=== PATIENT | female | born 1950 | race Caucasian/White ===

== ENCOUNTER 2019-08-15 11:04 | Emergency (ER) | payer MEDICARE, SELFPAY ==
[2019-08-15 11:06] VITALS: BP 145/96; PULSE 107; RESP 18; O2SAT 100; BMI 23.4
--- NOTE | 2019-08-15 11:19 | [facility].EDABDPAI ---
ED Disposition Clinical Impression: Abdominal pain Disposition: Home, Self-Care Condition on Discharge: Good Instructions: DI for Acute Abdomen Prescriptions: Nabumetone 750 mg PO BID 10 Days #20 tab Transmission Status: Pending to [facility] Tizanidine HCl [Zanaflex 4mg tablet] 4 mg PO TID 10 Days #30 tab Transmission Status: Pending to [facility] Referrals: Provider,Referral, MD [Primary Care Provider] - - Critical Care Critical Care Time: No Attestation: On , the high probability of a clinically significant, sudden or life threatening deterioration of the following system(s) required my full and direct attention, intervention and personal management. The time I documented below is in addition to time spent performing reported procedures but includes the following listed in this critical care notation. Medical Decision Making - Medical Records Medical records reviewed: Yes: I reviewed the patient's medical records. - Anatoliy Inquiry Pt receiving controlled substance: No Vital Signs: 08/15/19 11:06 08/15/19 13:12 Pulse Rate [Radial] 107 H 92 H Respiratory Rate 18 20 Blood Pressure [Right Arm] 145/96 H 147/83 H Blood Pressure Mean [Right Arm] 112 104 Blood Pressure Source [Right Arm] Automatic Cuff Automatic Cuff Blood Pressure Position [Right Arm] Sitting Sitting 02 Sat by Pulse Oximetry 100 98 Oxygen Delivery Method Room Air - Lab Data Lab results reviewed: Yes: I reviewed the patient's lab results. Lab Results 08/15/19 11:20: Urine Color Yellow, Urine Appearance Clear, Urine pH 5.5, Ur Specific [place] 1.015, Urine Protein Negative, Urine Glucose (UA) Negative, Urine Ketones Negative, Urine Blood Negative, Urine Nitrate Negative, Urine Bilirubin Negative, Urine Urobilinogen 0.2, Ur Leukocyte Esterase Negative, Urine RBC None, Urine WBC None, Ur Squamous Epith Cells 5-10, Amorphous Sediment Trace, Urine Bacteria None - CT Data CT Scan: Abdomen, Pelvis Time Received: 13:23 Preliminary Findings: Normal/NAD Abdominal Pain HPI - General Chief Complaint: Abdominal Pain Stated Complaint: lower stomach pain, top leg pain Time Seen by Provider: 08/15/19 11:19 Mode of Arrival: Ambulatory Source of Information: Patient Limitations: No Limitations Description of Symptoms (Recalled from ER Triage Doc. by RN): Lower abdomen pain. Lots of pressure - History of Present Illness HPI narrative: A pleasant 69-year-old female presents to the ED complaining of some suprapubic and lower abdominal pain that just started today. She states she does not not have any other symptoms except for the pain, radiates to the anterior part of her of her thighs. She states the pain feels more like a pressure sensation. She also rates that pain 3 out of 10. She states exacerbating factors include increasing intra-abdominal pressure and exacerbating factors include relieving herself via micturition. Otherwise no other symptoms. Patient is also very active she still works at a [employer] making [employer]. - Related Data Previous Rx's Medication Instructions Recorded Nabumetone 750 mg PO BID 10 Days #20 tab 08/15/19 Tizanidine HCl [Zanaflex 4mg 4 mg PO TID 10 Days #30 tab 08/15/19 tablet] Allergies Allergy/AdvReac Type Severity Reaction Status Date / Time No Known Allergies Allergy Verified 08/15/19 11:17 [facility] History - Hepatitis A Screen Drug use history?: No High risk sexual behaviors?: No History of sexually transmitted infection?: No Currently employed?: No Childcare worker?: No Do you have indoor plumbing?: Yes Do you have electricity?: Yes Attestation statement:: This patient has been screened for Hepatitis A risk factors. I have reviewed the patient's past medical history: Yes - Social History Educational Level: Completed High School Alcohol Intake: never Occupational Status: other Housing: house ROS Obtained: Yes All systems reviewed & no additional complaints
[2019-08-15 11:41] LABS: Microscopic, Urine URINE MICROSCOPIC (MICROSCOPIC)
[2019-08-15 11:43] LABS: Appearance,Urine CLEAR (Clear); Bilirubin,Urine Negative (Negative); Blood, Urine Negative (Negative); Color,Urine YELLOW (Yellow); Glucose,Urine (UA) Negative (Negative); Ketones,Urine Negative (Negative); Leukocyte Esterase,Urine Negative (Negative); Nitrate,Urine Negative (Negative); PH,Urine 5.5 (5.0-8.5); Protein,Urine Negative (Negative); Specific Gravity, Urine 1.015 (1.005-1.030); Urobilinogen,Urine 0.2 EU/dl (0.2)
[2019-08-15 11:54] LABS: Amorphous Sediment,Urine Trace /lpf
--- NOTE | 2019-08-15 12:07 | CT_ITS ---
PROCEDURE: CT ABDOMEN PELVIS WO CON CLINICAL INDICATION: pain Lower abdominal pain COMPARISON: No exams were available for comparison TECHNIQUE: Axial images obtained with sagittal and coronal reformats. All CT scans at the facility use one or more dose reduction, viz: automated exposure control, ma/kV adjustment per patient size (including targeted exams where dose is matched to indication, i.e. head), or iterative reconstruction technique. FINDINGS: LOWER THORAX: 3 mm noncalcified nodules present in the right middle lobe incompletely imaged. ABDOMEN & PELVIS: The liver, spleen, adrenal glands, and pancreas have an unremarkable unenhanced CT appearance. No renal or ureteral calculi. No intestinal obstruction or free air. Unremarkable appearing gallbladder. There postsurgical changes at the umbilical region and lower abdominal wall anteriorly. There are post hysterectomy changes. No evidence of appendicitis or diverticulitis atherosclerotic changes involve the abdominal aorta with minimal ectasia. No acute bony anomalies. There are few small inguinal lymph nodes on both sides IMPRESSION: No acute finding Dictated by: Joni Fraire MD 08/15/2019 12:58 Electronically signed by Joni Fraire MD in [place] 08/15/2019 12:58
[2019-08-15 13:12] VITALS: BP 147/83; PULSE 92; RESP 20; O2SAT 98
[2019-08-15 13:30] VITALS: BP 127/82; PULSE 78; RESP 16; TEMP 36.7; O2SAT 97
== END 2019-08-15 13:32 | disposition home or self-care (01) ==
PROVIDERS: Emergency Provider Family Medicine
DX: R10.30 Lower abdominal pain, unspecified (principal); Z90.79 Acquired absence of other genital organ(s)
CPT/HCPCS: 74176; 81001; 99283

== ENCOUNTER 2025-02-12 14:44 | Outpatient (CLI) | payer MEDICARE, SELFPAY ==
--- NOTE | 2025-02-12 14:45 | XR_ITS ---
FINAL REPORT CLINICAL HISTORY: left tib/fib pain COMPARISON: None FINDINGS: Two views of the left tibia and fibula were obtained. There is no acute fracture or dislocation. The joint spaces are intact. There is no soft tissue abnormality. IMPRESSION: No acute bony abnormality. Reviewed, Interpreted and Dictated by Lb Yuan MD Transcribed by Jigna Young Authenticated and [facility]
--- NOTE | 2025-02-12 14:45 | XR_ITS ---
FINAL REPORT CLINICAL HISTORY: left knee pain COMPARISON: None FINDINGS: LEFT KNEE Four views demonstrate no acute fracture or dislocation. The joint spaces appear normal. No acute soft tissue abnormality is seen. IMPRESSION: No acute bony abnormality. Reviewed, Interpreted and Dictated by Lb Yuan MD Transcribed by Jigna Young Authenticated and [facility]
== END 2025-02-12 23:59 | disposition home or self-care (01) ==
LOC: RAD 14:45
PROVIDERS: PCP Nurse Practitioner Family; Visit Provider Physician Assistant
DX: M25.562 Pain in left knee (principal); M89.8X6 Other specified disorders of bone, lower leg
CPT/HCPCS: 73562; 73590

== ENCOUNTER 2025-02-25 08:19 | Outpatient (CLI) | payer MEDICARE, SELFPAY | END 2025-02-25 23:59 | LOC: LAB.DROPOF 02-27 08:20 | PROVIDERS: PCP Nurse Practitioner Family; Visit Provider Family Medicine | DX: R39.9 Unspecified symptoms and signs involving the genitourinary system (principal) | CPT/HCPCS: 87086; 87088; 87186 ==

== ENCOUNTER 2025-03-02 14:56 | Outpatient (CLI) | payer MEDICARE, SELFPAY ==
--- NOTE | 2025-03-02 15:30 | MR_ITS ---
PROCEDURE INFORMATION: Exam: MR Left Lower Extremity Joint Without Contrast, Knee Exam date and time: 03/02/2025 3:49 PM Age: 74 years old Clinical indication: Pain; Knee; Left; Additional info: Medial left knee pain, felt a pop TECHNIQUE: Imaging protocol: Magnetic resonance imaging of the left lower extremity joint without contrast. Exam focused on the knee. COMPARISON: CR XR KNEE LT 3V 02/12/2025 2:38 PM FINDINGS: Bones/joints: The fat pads of the knee are unremarkable. There is a large joint effusion. Visible bone marrow is within normal limits. Evaluation of the cartilage is limited by the motion artifact. No large cartilage abnormalities are identified. Medial meniscus: There appears to be a horizontal tear extending to the undersurface at the posterior horn and body of the medial meniscus, series 6 image 8. Lateral meniscus: The lateral meniscus is unremarkable. No tear. Anterior cruciate ligament: The anterior cruciate ligament is intact and unremarkable. Posterior cruciate ligament: Posterior cruciate ligament is intact and unremarkable. Medial capsule and supporting structures: The medial collateral ligament is normal. Lateral capsule and supporting structures: The popliteus tendon appears normal. The iliotibial band is normal. The fibular collateral ligament is normal. Biceps femoris tendon is normal. Extensor mechanism of knee: The quadriceps tendon appears normal. Patellar tendon appears normal. Soft tissues: Unremarkable. Other findings: There is motion artifact throughout the examination, limiting evaluation of the anatomy. Pathology could be obscured. The visible skeletal structures are unremarkable. IMPRESSION: 1. There is motion artifact throughout the examination, limiting evaluation of the anatomy. Pathology could be obscured. 2. There is a large joint effusion. 3. There appears to be a horizontal tear extending to the undersurface at the posterior horn and body of the medial meniscus, series 6 image 8.
== END 2025-03-02 23:59 | disposition home or self-care (01) ==
LOC: RAD 14:57
PROVIDERS: PCP Nurse Practitioner Family; Visit Provider Physician Assistant
DX: M25.462 Effusion, left knee (principal); M25.562 Pain in left knee; R93.6 Abnormal findings on diagnostic imaging of limbs
CPT/HCPCS: 73721